=== PATIENT | female | born 1935 | race Caucasian/White ===

== ENCOUNTER → 2016-09-12 | Outpatient (CLI) | payer MEDICARE, BC ==
[~2016-09-12] MED LIST: ACETAMINOPHEN PO; ALBUTEROL17 GM INH; AMIODARONE; AMIODARONE PO; ANTIVERT PO; ASPIRIN ENTERI325 M1 PO; BACITRACIN1 GM OINT TOP; BENZONATATE PO; CALCIUM + D 6001 TA1 PO; CALCIUM 500 + D1 TAB PO; CARTIA XT120 MG PO; CERTAGEN PO; CIPRO PO; COLACE PO; CORDARONE200 M1; CORDARONE200 M1 PO; CORTISPORIN-TC10 ML OT; COUMADIN; COUMADIN2.5 MG PO; COUMADIN5 MG; COUMADIN5 MG PO; FLEXERIL PO; KLONOPIN0.5 MG PO; KLONOPIN1 MG PO; LIPITOR PO; LODRANE 241 CAP.SR . PO; LOPRESSOR PO; LORTAB 10-5001 EACH PO; MULTI-VITAMIN1 TAB PO; PACERONE PO; PANTOPRAZOLE SO40 MG PO; PERCOCET 5-3251 TAB PO; PHENERGAN PO; PRAVACHOL; PRAVACHOL80 MG; PRAVACHOL80 MG PO; PRAVASTATIN SOD80 MG PO; PRILOSEC20 MG; PRILOSEC20 MG PO; PROTONIX; PROTONIX PO; RYTHMOL150 MG PO; STERAPRED5 MG/DOSE1 PO; TYLENOL325 M1; VICODIN 5-3001 EACH PO; VOLTAREN75 MG PO; ZOFRAN ODT4 MG PO
--- NOTE | ~2016-09-12 | MR113 ---
[facility] A Service of [facility] & [facility] RADIOLOGY TEXT RESULTS PATIENT: MARIAELENA MARSHALL LOCATION: [facility] : 34 UNIT #: [id number] AGE: [address]: Ida Blair APRN SEX: F ORDER DR: [id number] [facility] [address] [place], [place] [address] [id number] O MR#: [id number] Acc #: [id number] NAME: MARIAELENA MARSHALL. : 1935 SEX: F STUDY DATE/TIME: 09/12/2016 15:34 UNIT: [facility] ROOM: STUDY DESCRIPTION: MR Lumbar Wo Contrast Attending Physician: Ida Blair A.P.R.N. Referring Physician: Ida Blair A.P.R.N. Ordering Physician: Ida Blair A.P.R.N. Primary Care Physician: Ida Blair A.P.R.N. MRI CENTER REPORT This report is preliminary unless electronic signature is present. EXAM Lumbar spine MRI no contrast 09/12/2016 PROCEDURE Routine unenhanced lumbar spine MRI. COMPARISON None. CLINICAL HISTORY Back pain after fall 2 weeks ago. PROCEDURE Routine unenhanced lumbar spine MRI. FINDINGS In addition to a degenerative grade 1 4-5 anterolisthesis, there is a subacute L1 compression fracture with about 20% height loss, and a subacute T11 compression fracture with probably no more than 5% to 10% height loss. There is no substantial post-traumatic canal compromise at any level. The distal cord and conus are normal in position and appearance. There are multilevel degenerative changes as well. At L1-2, while there is no canal stenosis, there is at least mild bilateral foraminal stenosis. At L2-3, there is a disc bulge and mild or hcwe-ae-opijyyib canal stenosis with iqop-wg-vkfybbtk or moderate left and mild right foraminal stenosis. At 3-4, there is iyholxcv-xv-fwxchg degenerative stenosis due to disc and endplate change and facet arthropathy and mild right and jrus-tl-axzoacce STS. [facility] A Service of [facility] & [facility] RADIOLOGY TEXT RESULTS PATIENT: MARIAELENA MARSHALL [facility] UNIT #: [id number] AGE: [address]: Ida Blair APRN SEX: F ORDER DR: left foraminal stenosis. At 4-5, there is anterolisthesis with a disc and endplate and facet degenerative change and severe canal stenosis and uitq-xq-jfgsivat right and left foraminal stenosis. At 5-1, there is no canal stenosis and minimal, if any, foraminal narrowing. IMPRESSION In addition to degenerative canal and foraminal narrowing, including severe canal stenosis at 4-5 and 3-4, there are subacute compression fractures at L1 with about 20% height loss and at T11 with about 5% to 10% height loss but no canal compromise at either level. No other recent fracture is seen. Dictated by... Steve Caraballo M.D. THIS IS AN ELECTRONICALLY VERIFIED REPORT Steve Caraballo M.D. at 09/16/2016 9:26 AM TEV/israel TD: 09/14/2016 08:33 JOB #: [id number] MRI CENTER REPORT Page 1 of 1 COPY
--- NOTE | ~2016-09-12 | CT71 ---
[facility] A Service of [facility] & [facility] RADIOLOGY TEXT RESULTS PATIENT: MARIAELENA MARSHALL LOCATION: [facility] : 34 UNIT #: [id number] AGE: [address]: Ida Blair APRN SEX: F ORDER DR: [id number] [facility] [address] [place], [place] [address] [id number] O MR#: [id number] Acc #: [id number] NAME: MARIAELENA MARSHALL. : 1935 SEX: F STUDY DATE/TIME: 09/12/2016 16:17 UNIT: [facility] ROOM: STUDY DESCRIPTION: CT Head Wo Contrast Attending Physician: Ida Blair A.P.R.N. Referring Physician: Ida Blair A.P.R.N. Ordering Physician: Ida Blair A.P.R.N. Primary Care Physician: Ida Blair A.P.R.N. MEDICAL IMAGING REPORT This report is preliminary unless electronic signature is present INDICATION Epistaxis. Fall. Hit head on the floor. 2-week duration. TECHNIQUE CT of the head without contrast. This CT exam was performed with one or more of the following radiation dose reduction techniques: automatic exposure control, adjustment of mA and/or kV according to patient size, and iterative reconstruction. COMPARISON CT head dated 12/19/2015. FINDINGS There is mild global cerebral atrophy, not unexpected for age. Mild chronic small vessel ischemic changes are also present. There is some symmetric calcifications in the basal ganglia bilaterally. Diana-white matter differentiation is stable. The ventricles and basilar cisterns are normal in size and configuration. No extraaxial collections. No acute osseous abnormalities. Visualized paranasal sinuses and mastoid air cells are clear. There is some degenerative change of both temporal mandibular joints. IMPRESSION 1. Atrophy and chronic small vessel changes. 2. No new intracranial findings. Dictated by... Balbir Saunders M.D. THIS IS AN ELECTRONICALLY VERIFIED REPORT Balbir Saunders M.D. at 09/14/2016 10:21 AM [facility] A Service of [facility] & [facility] RADIOLOGY TEXT RESULTS PATIENT: MARIAELENA MARSHALL LOCATION: [facility] : 34 UNIT #: [id number] AGE: [address]: Ida Blair APRN SEX: F ORDER DR: Krystal TD: 09/13/2016 16:34 JOB #: [id number] MEDICAL IMAGING REPORT Page 1 of 1 COPY
== END | disposition home or self-care (01) ==
LOC: CMRI 14:08
DX: T14.8 Other injury of unspecified body region (principal); R04.0 Epistaxis; G31.9 Degenerative disease of nervous system, unspecified; M48.06 Spinal stenosis, lumbar region; M48.56XA Collapsed vertebra, not elsewhere classified, lumbar region, initial encounter for fracture
CPT/HCPCS: 70450; 72148

== ENCOUNTER → 2016-11-26 | Outpatient (CLI) | payer MEDICARE, BC ==
--- NOTE | ~2016-11-26 | CT57 ---
[facility] A Service of [facility] & [facility] RADIOLOGY TEXT RESULTS PATIENT: MARIAELENA MARSHALL [facility] UNIT #: [id number] AGE: [address]: Jenna Galicia SEX: F ORDER DR: [id number] [facility] [address] [place], [place] [address] [id number] O MR#: [id number] Acc #: [id number] NAME: MARIAELENA MARSHALL : 1935 SEX: F STUDY DATE/TIME: 11/26/2016 UNIT: [facility] ROOM: STUDY DESCRIPTION: CT Chest Wo Cont Attending Physician: Jenna Galicia A.P.R.N. Referring Physician: Jenna Galicia A.P.R.N. Ordering Physician: Jenna Galicia A.P.R.N. Primary Care Physician: Ida Blair A.P.R.N. MEDICAL IMAGING REPORT This report is preliminary unless electronic signature is present EXAM CT chest without contrast, 11/26/2016. HISTORY Right upper lobe lung nodule followup. Shortness of breath since August 2015. Atrial fibrillation. COMPARISON CT chest 11/27/2015, 08/03/2013. PROCEDURE 2-mm noncontrasted axial images through the chest. Sagittal and coronal reformatted images were obtained. This CT exam was performed with one or more of the following radiation dose reduction techniques: automatic exposure control, adjustment of mA and/or kV according to patient size, and iterative reconstruction. FINDINGS A few of the images are degraded by patient respiratory motion. 1.6 x 1.3 cm noncalcified pulmonary nodule in the right upper lobe is a stable finding since 08/03/2013, in keeping with a benign finding. Previously described tree-in-bud infiltrates described within the left lower lobe on previous exam have resolved. There is waxing and waning appearance of peribronchiolar infiltrates within the right lower lobe since 11/27/2015. Some preexisting tree-in-bud nodular densities have resolved, while new peribronchiolar infiltrates have developed. There is also mild right lower lobe bronchial wall thickening. Findings are favored to represent small airways infectious/inflammatory etiology. There is mild scarring in the lung apices, right greater than left. Mild emphysematous changes are present. Mild cardiomegaly with coronary artery calcifications. Trace fluid within pericardial recesses, unchanged. There is mild air-fluid distension of the mid to upper thoracic esophagus. [facility]. [facility] A Service of [facility] RADIOLOGY TEXT RESULTS PATIENT: MARIAELENA MARSHALL LOCATION: [facility] : 34 UNIT #: [id number] AGE: [address]: Jenna Galicia SEX: F ORDER DR: The included portions of the upper abdominal organs have a normal noncontrasted appearance. There is mild calcification within the upper abdominal aorta, which is tortuous. Compression deformity of the superior endplate of L1 appears new since the 11/27/2015 exam. There is very mild concavity of the superior endplate of T12, which is also a new finding. Chronic-appearing mild compression deformities of the superior endplate of T11 are unchanged, although slightly more sclerotic. The L1 vertebral fracture demonstrates about 45% loss of vertebral body height, but no significant bony retropulsion is seen, and there is no subluxation. Not mentioned above, there is a 4-mm noncalcified nodule within the left lower lobe that is new since the previous study, but once again, is favored to represent benign infectious/inflammatory etiology IMPRESSION 1. Near complete resolution of tree-in-bud nodular infiltrates in the left lower lobe with only faint nodular density remaining. Waxing and waning appearance of the tree-in-bud nodular densities in the right lower lobe, with residual peribronchiolar nodular thickening and bronchiolar wall thickening. Findings may represent changes of infectious/ inflammatory small airways disease or could represent changes of aspiration in the appropriate clinical context. There is mild air-fluid distension of the thoracic esophagus. 2. Stable 1.6 cm noncalcified right upper lobe pulmonary nodule since 2013 suggesting benign etiology. 3. Emphysema. 4. There are new, but chronic-appearing compression deformities of L1, and to a lesser extent, of T12, in comparison to the 11/27/2015 examination. There is about 45% loss of L1 vertebral body height, but no significant bony canal compromise is seen. No subluxation. 5. Stable cardiomegaly with coronary artery calcifications. Dictated by... Katherine Shafer M.D. THIS IS AN ELECTRONICALLY VERIFIED REPORT Katherine Shafer M.D. at 11/28/2016 6:13 AM RINA/casa TD: 11/27/2016 11:22 JOB #: [id number] MEDICAL IMAGING REPORT Page 1 of 1 COPY
== END | disposition home or self-care (01) ==
LOC: CCAT 13:45
DX: R91.8 Other nonspecific abnormal finding of lung field (principal); J43.9 Emphysema, unspecified; I51.7 Cardiomegaly; I25.10 Atherosclerotic heart disease of native coronary artery without angina pectoris; M43.8X6 Other specified deforming dorsopathies, lumbar region
CPT/HCPCS: 71250